=== PATIENT | female | born 2000 | race Two or more races ===

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

== ENCOUNTER 2021-07-05 15:36 | Emergency (ER) | payer BC, OTHER ==
[~2021-07-05] VITALS: Ht 170.2 cm; Wt 59.0 kg
[2021-07-05] MEDS ORDERED: IBUPROFEN 600 MG TABLET PO ONE (16:30)
[2021-07-05] MEDS ORDERED: NEOMY/BACITRA/POLYMYXIN B OINT UD PACKET TP ONE ×2 (16:30→16:50)
[2021-07-05] MEDS ORDERED: IBUPROFEN 600 MG TABLET ONE (16:50)
[2021-07-05] MEDS ORDERED: SULF1TAB48 PO (16:53)
[2021-07-05] MEDS ORDERED: SULFAMETH/TRIMETH 800/160 MG TABLET PO ONE (17:00)
[2021-07-05] MEDS ORDERED: SULFAMETH/TRIMETH 800/160 MG TABLET ONE (17:12)
--- NOTE | 2021-07-05 17:23 | NUR ---
PT WAS EVALUATED BY DR QUINTANILLA. PT WAS D/C'D TO HOME. D/C INSTRUCTIONS GIVEN TO THE PT AND TO HER FATHER BY DR QUINTANILLA.
[2021-07-05 17:24] VITALS: BP 130/66
== END 2021-07-05 17:25 | disposition home or self-care (01) ==
LOC: ER 16:24
DX: S99.921A Unspecified injury of right foot, initial encounter (principal); X58.XXXA Exposure to other specified factors, initial encounter; Y92.89 Other specified places as the place of occurrence of the external cause; F84.0 Autistic disorder
CPT/HCPCS: 73660; A4663